=== PATIENT | male | born 2000 | race Two or more races ===

== ENCOUNTER → 2020-04-28 | Outpatient (CLI) | payer MEDICAID ==
[~2020-04-28] MED LIST: CLON0.5T23 PO; DIVA-73 PO; FOLI-43 PO; LEVE500T19 PO; TRIH2TAB3 PO
== END | disposition home or self-care (01) ==
LOC: LAB 12:06
PROVIDERS: ATTEND Internal Medicine Gastroenterology
DX: Z01.812 Encounter for preprocedural laboratory examination (principal); Z20.828 Contact with and (suspected) exposure to other viral communicable diseases
CPT/HCPCS: 87426

== ENCOUNTER 2020-04-29 09:54 | Day surgery (SDC) | payer MEDICAID ==
[~2020-04-29] VITALS: Ht 185.4 cm; Wt 45.4 kg
[2020-04-29] MEDS ORDERED: LACTATED RINGERS 1,000 ML IV SCH (11:30)
[2020-04-29 11:35] LABS: BASOPHILS % 0.5 % (0.0-2.0); CHLORIDE 109 mEq/L (98-107); EOSINOPHILS % 3.1 % (0.0-5.0); HEMOGLOBIN. 11.8 g/dL (14.0-18.0); LYMPHOCYTES % 26.6 % (20.0-50.0); MEAN CORPUSCULAR VOLUME 82.1 fL (80.0-94.0); MEAN PLATELET VOLUME 8.7 fl (7.4-10.4); MONOCYTES % 6.8 % (2.0-8.0); PLATELET 207 x1000/uL (130-400); RED BLOOD CELL COUNT 4.38 mill/uL (4.7-6.1)
[2020-04-29 11:45] LABS: INR 1.2; PARTIAL THROMBOPLASTIN TIME 28.7 sec (23.4-31.0)
[2020-04-29] MEDS ORDERED: LABETALOL 5MG/ML SYR 20 MG/4 ML SYRINGE IV PRN (12:30)
[2020-04-29] MEDS ORDERED: ONDANSETRON HCL 4MG/2ML INJ IV PRN (12:30)
[2020-04-29] MEDS ORDERED: MEPERIDINE HCL/PF 25MG/ML CPJ IV PRN (12:30)
[2020-04-29] MEDS ORDERED: HYDROMORPHONE HCL/PF 2MG/ML CPJ IV PRN (12:30)
== END 2020-04-29 14:25 | disposition home or self-care (01) ==
LOC: OR 09:54 → EDUNIT# 12:00 → OR 14:25
PROVIDERS: ATTEND Internal Medicine Gastroenterology
DX: R13.10 Dysphagia, unspecified (principal); R63.4 Abnormal weight loss; Z79.899 Other long term (current) drug therapy
CPT/HCPCS: 36415; 80048; 85025; 88305; 88313